=== PATIENT | female | born 1965 | race Caucasian/White ===

== ENCOUNTER 2025-07-01 11:39 | Emergency (ER) | payer BC, SELFPAY ==
[2025-07-01 11:40] VITALS: BP 214/95; PULSE 69; RESP 16; TEMP 36.8; O2SAT 95; BMI 34.9
--- NOTE | 2025-07-01 11:50 | EX.ED.GENINJ ---
HPI History of Present Illness Chief Complaint: Laceration Narrative Narrative: Patient is a 59-year-old female presenting to the emergency department for a laceration sustained on her left thumb after opening a can of soup. Patient is unsure when her last tetanus shot was. States the injury happened around 1030 this morning. States he continued bleeding which is why she is here. Denies any other injuries. PFSH PFSH Medical History no medical history Allergy/AdvReac Type Severity Reaction Status Date / Time acetaminophen (From Vicodin) AdvReac Nausea Verified 07/01/25 11:42 hydrocodone (From Vicodin) AdvReac Nausea Verified 07/01/25 11:42 Family History no significant family his Surgical History no surgical history Social History Smoking Status: Former smoker ROS ROS ED ROS Narrative see HPI EXAM Physical Exam Narrative Exam Narrative: Vital signs: Reviewed General: Alert and orientedx3. No acute distress HEENT: Head is normocephalic and atraumatic, sinuses nontender, pupils equal round and reactive. Nares are patent. Oropharynx and throat exams normal. Neck: Supple without lymphadenopathy nontender Cardiovascular: Regular rate and rhythm, no murmurs. No rubs or gallops. Normal S1 and S2 Respiratory: Clear to auscultation bilaterally. No wheezes, rales, rhonchi Abdominal: Soft and nontender. Normal bowel sounds. No guarding or rebound. Nonsurgical abdomen Extremities: No tenderness. No bruising. Normal range of motion. Normal sensation. Skin: 3 cm fairly superficial laceration to the radial side of the mid left thumb. Active oozing from the laceration. No foreign body seen on wound exploration. Patient able to flex and extend her thumb without abnormalities. Radial pulse intact. Sensation and motor intact in radial, median and ulnar distributions. The rest of the physical exam is unremarkable Const Vital Signs: 07/01/25 11:40 07/01/25 14:04 Temperature 98.3 F 98.2 F Temperature Source Oral Pulse Rate 69 82 Respiratory Rate 16 16 Blood Pressure 214/95 H 191/70 H Blood Pressure Mean 134 110 Pulse Ox 95 100 Oxygen Delivery Method Room Air MDM MDM MDM Narrative Medical decision making narrative: Patient is a 59-year-old female presenting emergency department for a laceration sustained on her left thumb. Patient was seen and examined. Vitals are stable. Patient resting in bed comfortably no acute distress. X-ray of the thumb was obtained to rule for any occult fracture or radiopaque foreign body. X-ray reviewed by myself, no fractures or radiopaque foreign body seen. Radiology read in agreement. Patient is unsure when her last tetanus vaccine was, updated here. Wound was copiously irrigated. Anesthetic was achieved with 1% lidocaine without epi. 3 4.0 Ethilon simple interrupted sutures were placed without difficulty. Hemostasis obtained. Patient tolerated well. Dressing was applied. Patient was given wound care instructions including watching for signs of infection including redness, drainage or warmth. Patient discharged from the Emergency Department. I do not feel that the patient's evaluation reveals any acute reason for admission at this time. I instructed them to either follow-up with their primary care physician or promptly return to the Emergency Department for reevaluation should symptoms worsen or new symptoms develop. I explained what symptoms would indicate the need to return to the emergency department. Shared decision making was used. The patient voiced understanding of the treatment plan and is agreeable with it. Clinical impression Laceration of finger History & Record Review Discussion w/independent historian: Patient Radiography X-Ray: Read by ED Physician, No Fracture and - (No foreign body seen) Diagnostic Testing: Clinical Impression(s) from Imaging Studies Finger X-Ray 07/01/25 12:00 IMPRESSION: No fracture. Reading Location: [facility] Discharge Plan Triage Chief Complaint: Laceration ED Provider: Tania Ruiz Dx/Rx/DC Orders Clinical Impression: Laceration Instructions: ED Laceration Extremity, ED Laceration Minimize Scars Primary Care Provider: Mamie Singh Activity Restrictions/Additional Instructions: Please watch the cut for signs of infection which include redness, drainage or warmth around it. You need to follow-up in 7-10 days to have the stitches removed. Can do this at your primary care doctors office. Your evaluation in the Emergency Department did not reveal any acute reason for admission. However, I want to emphasize that you may be early in the course of a disease process or illness even if it is not present. For this reason you should follow-up within 24 hours for reevaluation with either your primary care physician or if necessary back here in the Emergency Department. You should return to the Emergency Department immediately if your symptoms worsen or new symptoms develop. Print Language: Wolof Disposition Disposition: Home, Self Care Discharge Date/Time: 07/01/25 14:05
--- NOTE | 2025-07-01 12:00 | RAD_ITS ---
PROCEDURE: RAD/Finger(s) Min 2 Views
[2025-07-01] MEDS: Lidocaine 1% (20 ml mdv) 20 ML Vial 10 ML INFILT (12:50)
[2025-07-01 14:04] VITALS: BP 191/70; PULSE 82; RESP 16; TEMP 36.8; O2SAT 100
--- NOTE | 2025-07-01 14:04 | ED.RN ---
pt states she has not taken her BP med sin 2 days so that is why her BP is so high. Dr. Ruiz notified, pt states she is going to go home and take her meds.
== END 2025-07-01 14:05 | disposition home or self-care (01) ==
PROVIDERS: Emergency Provider Student in an Organized Health Care Education/Training Program; PCP Internal Medicine; Visit Provider Student in an Organized Health Care Education/Training Program
DX: S61.012A Laceration without foreign body of left thumb without damage to nail, initial encounter (principal); W26.8XXA Contact with other sharp object(s), not elsewhere classified, initial encounter; Z23 Encounter for immunization; Z87.891 Personal history of nicotine dependence
CPT/HCPCS: 12002; 73140; 90471; 90715; 99282; A4216